=== PATIENT | female | born 1960 | race African-American/Black ===

== ENCOUNTER 2018-06-26 20:10 | Inpatient (IN) | payer OTHER ==
[~2018-06-26] VITALS: Ht 160 cm; Wt 50.3 kg
[2018-06-26 20:14] VITALS: Ht 160 cm; Wt 50.3 kg
[2018-06-26 21:25] LABS: PLATELET COUNT 193 x10^3mcL (130-400); RED CELL DISTRIBUTION WIDTH 14.1 % (11.5-14.5)
[2018-06-26 21:45] LABS: BAND NEUTROPHIL 0 % (0-10); BASOPHIL 0 % (0-2); MONOCYTE 5 % (0-7); SEGMENTED NEUTROPHILS 57 % (37-75)
[2018-06-26 21:46] LABS: rbc morphology (normal/abnorm) NORMAL (NORMAL)
[2018-06-26 21:52] LABS: CALCIUM 8.8 mg/dL (8.5-10.1); CARBON DIOXIDE 33.2 mmol/L (21-32); CHLORIDE SERUM 99 mmol/L (98-107); CREATININE SERUM 0.7 mg/dL (0.6-1.0); GFR1 > 60 mL/min; GLUCOSE SERUM 185 mg/dL (74-106); POTASSIUM SERUM 3.3 mmol/L (3.5-5.1); SODIUM SERUM 141 mmol/L (136-145)
[2018-06-26 21:57] LABS: ALBUMIN 3.9 g/dL (3.4-5.0); ALKALINE PHOSPHATASE 54 U/L (46-116); ALT/SGPT 18 U/L (14-59); AST/SGOT 22 U/L (15-37); BILIRUBIN TOTAL 0.92 mg/dL (0.20-1.00); TOTAL PROTEIN, SERUM 7.4 g/dL (6.4-8.2)
[2018-06-26 22:19] LABS: microscopic required? NO
[2018-06-26 22:24] LABS: AMPHETAMINE QUAL UR NONE DETECTED (See below)
[2018-06-26 22:25] LABS: urine erythrocyte NEGATIVE (NEGATIVE)
[2018-06-26 23:05] VITALS: BP 154/106
[2018-06-26 23:09] LABS: MAGNESIUM 2.3 mg/dL (1.8-2.4); PHOSPHOROUS 3.3 mg/dL (2.5-4.9)
[2018-06-27 00:07] LABS: FREE T4 1.21 ng/dL (0.76-1.46); FREE THYROXINE INDEX 2.7 ug/dL (1.4-4.5)
[2018-06-27 00:14] LABS: T3 TOTAL 0.84 ng/mL
[2018-06-27 02:09] VITALS: BP 148/89
[2018-06-27 10:01] VITALS: BP 115/77
[2018-06-27 17:52] VITALS: BP 117/87
[2018-06-27 20:52] VITALS: BP 145/98
[2018-06-28 05:32] VITALS: BP 131/83
[2018-06-28 07:05] LABS: CALCIUM 8.9 mg/dL (8.5-10.1); CARBON DIOXIDE 26.7 mmol/L (21-32); CHLORIDE SERUM 101 mmol/L (98-107); CREATININE SERUM 0.8 mg/dL (0.6-1.0); GFR1 > 60 mL/min; MAGNESIUM 2.1 mg/dL (1.8-2.4); PHOSPHOROUS 4.2 mg/dL (2.5-4.9); SODIUM SERUM 141 mmol/L (136-145)
[2018-06-28 07:15] LABS: GLUCOSE SERUM 54 mg/dL (74-106)
[2018-06-28 07:35] LABS: BASOPHIL % 0.8 % (0-2); PLATELET COUNT 251 x10^3mcL (130-400)
[2018-06-28 08:35] VITALS: BP 147/84
[2018-06-28 18:06] VITALS: BP 134/96
[2018-06-28 21:33] VITALS: BP 151/98
[2018-06-29 05:09] VITALS: BP 147/97
[2018-06-29 07:55] VITALS: BP 150/101
[2018-06-29 18:47] VITALS: BP 159/113
[2018-06-29 20:22] VITALS: BP 148/103
[2018-06-29 21:15] VITALS: BP 151/102
[2018-06-30 05:32] VITALS: BP 158/96
[2018-06-30 20:37] VITALS: BP 169/102; BP 169/121
[2018-06-30 22:28] VITALS: BP 131/104
[2018-07-01 05:47] VITALS: BP 133/83
[2018-07-01 06:21] LABS: BASOPHIL % 0.5 % (0-2); PLATELET COUNT 213 x10^3mcL (130-400); RED CELL DISTRIBUTION WIDTH 13.8 % (11.5-14.5)
[2018-07-01 09:06] VITALS: BP 123/86
[2018-07-01 12:55] LABS: CALCIUM 8.5 mg/dL (8.5-10.1); CARBON DIOXIDE 27.2 mmol/L (21-32); CHLORIDE SERUM 106 mmol/L (98-107); CREATININE SERUM 0.7 mg/dL (0.6-1.0); GFR1 > 60 mL/min; GLUCOSE SERUM 101 mg/dL (74-106); SODIUM SERUM 140 mmol/L (136-145)
[2018-07-01 12:56] LABS: POTASSIUM SERUM 2.8 mmol/L (3.5-5.1)
[2018-07-01 17:25] VITALS: BP 109/80
[2018-07-01 21:02] VITALS: BP 119/71
[2018-07-02 05:06] VITALS: BP 114/71
[2018-07-02 08:36] VITALS: BP 109/78
[2018-07-02 09:42] LABS: CALCIUM 8.3 mg/dL (8.5-10.1); CARBON DIOXIDE 26.1 mmol/L (21-32); CHLORIDE SERUM 102 mmol/L (98-107); CREATININE SERUM 0.7 mg/dL (0.6-1.0); GFR1 > 60 mL/min; GLUCOSE SERUM 102 mg/dL (74-106); SODIUM SERUM 137 mmol/L (136-145)
[2018-07-02 10:35] LABS: POTASSIUM SERUM 2.5 mmol/L (3.5-5.1)
[2018-07-02 12:21] LABS: MAGNESIUM 1.8 mg/dL (1.8-2.4); PHOSPHOROUS 4.4 mg/dL (2.5-4.9)
[2018-07-02 16:36] VITALS: BP 104/70
[2018-07-02 19:22] LABS: CALCIUM 8.3 mg/dL (8.5-10.1); CARBON DIOXIDE 29.4 mmol/L (21-32); CHLORIDE SERUM 105 mmol/L (98-107); CREATININE SERUM 0.7 mg/dL (0.6-1.0); GFR1 > 60 mL/min; GLUCOSE SERUM 106 mg/dL (74-106); POTASSIUM SERUM 3.6 mmol/L (3.5-5.1); SODIUM SERUM 136 mmol/L (136-145)
[2018-07-02 19:53] VITALS: BP 113/76
[2018-07-03 05:42] VITALS: BP 105/68
[2018-07-03 09:00] VITALS: BP 106/65
[2018-07-03 17:03] VITALS: BP 106/65
[2018-07-03] MEDS ORDERED: SERO100 PO (17:23)
[2018-07-03] MEDS ORDERED: HYD25 PO (17:23)
[2018-07-03] MEDS ORDERED: ZES10 PO (17:23)
== END 2018-07-03 19:38 | DRG 885 ==
LOC: ED 20:10 → MU 22:08
PROVIDERS: Emergency Medicine; Internal Medicine
DX: F20.2 Catatonic schizophrenia (principal); G93.41 Metabolic encephalopathy; F20.0 Paranoid schizophrenia; G90.8 Other disorders of autonomic nervous system; I16.0 Hypertensive urgency; T46.5X6A Underdosing of other antihypertensive drugs, initial encounter; I10 Essential (primary) hypertension; E87.6 Hypokalemia; E78.5 Hyperlipidemia, unspecified; E16.2 Hypoglycemia, unspecified; R63.0 Anorexia; R33.9 Retention of urine, unspecified; F45.8 Other somatoform disorders; Z68.21 Body mass index [BMI] 21.0-21.9, adult; Z91.14 Patient's other noncompliance with medication regimen; Y92.009 Unspecified place in unspecified non-institutional (private) residence as the place of occurrence of the external cause
CPT/HCPCS: 82962; 83880; 84439; G0480; J1610; J1630; J2060; J3480; J3490; J7030; Q0092

== ENCOUNTER 2018-07-11 07:54 | Inpatient (IN) | payer OTHER ==
[~2018-07-11] VITALS: Ht 160 cm; Wt 52.2 kg
[~2018-07-11 07:54] MED LIST: HYD25 PO; SERO100 PO; ZES10 PO
[2018-07-11 08:53] LABS: BASOPHIL % 1.4 % (0-2); PLATELET COUNT 297 x10^3mcL (130-400); RED CELL DISTRIBUTION WIDTH 13.4 % (11.5-14.5)
[2018-07-11 09:27] LABS: CALCIUM 8.8 mg/dL (8.5-10.1); CARBON DIOXIDE 20.9 mmol/L (21-32); CHLORIDE SERUM 102 mmol/L (98-107); CREATININE SERUM 0.9 mg/dL (0.6-1.0); GFR1 > 60 mL/min; GLUCOSE SERUM 168 mg/dL (74-106); SODIUM SERUM 138 mmol/L (136-145)
[2018-07-11 12:00] VITALS: BP 119/85
[2018-07-11 12:13] LABS: T3 TOTAL 0.84 ng/mL
[2018-07-11 14:35] VITALS: Ht 160 cm; Wt 52.2 kg
[2018-07-11 17:45] VITALS: BP 120/82
[2018-07-11 18:36] LABS: CHOLESTEROL/HDL RATIO 4.2; MAGNESIUM 2.3 mg/dL (1.8-2.4); PHOSPHOROUS 3.2 mg/dL (2.5-4.9)
[2018-07-11 18:46] LABS: FREE T4 1.23 ng/dL (0.76-1.46); FREE THYROXINE INDEX 2.4 ug/dL (1.4-4.5); T4(THYROXINE) 6.3 ug/dL (4.7-13.3)
[2018-07-11 20:00] VITALS: BP 130/94
[2018-07-12 05:27] VITALS: BP 129/87
[2018-07-12 06:36] LABS: microscopic required? YES; urine erythrocyte 2+ (NEGATIVE)
[2018-07-12 06:52] LABS: CALCIUM 8.2 mg/dL (8.5-10.1); CARBON DIOXIDE 24.7 mmol/L (21-32); CHLORIDE SERUM 113 mmol/L (98-107); CREATININE SERUM 0.7 mg/dL (0.6-1.0); GFR1 > 60 mL/min; GLUCOSE SERUM 68 mg/dL (74-106); POTASSIUM SERUM 4.5 mmol/L (3.5-5.1); SODIUM SERUM 145 mmol/L (136-145)
[2018-07-12 06:55] LABS: RED CELL DISTRIBUTION WIDTH 13.6 % (11.5-14.5)
[2018-07-12 07:27] LABS: BASOPHIL % 0.4 % (0-2); PLATELET COUNT 233 x10^3mcL (130-400)
[2018-07-12 08:20] VITALS: BP 123/86
[2018-07-12 09:10] LABS: AMPHETAMINE QUAL UR NONE DETECTED (See below)
[2018-07-12 17:06] VITALS: BP 127/92
[2018-07-12 22:20] VITALS: BP 141/94
[2018-07-13 05:34] VITALS: BP 140/95
[2018-07-13 06:13] LABS: BASOPHIL % 0.3 % (0-2); PLATELET COUNT 232 x10^3mcL (130-400); RED CELL DISTRIBUTION WIDTH 14.5 % (11.5-14.5)
[2018-07-13 06:24] LABS: CHLORIDE SERUM 111 mmol/L (98-107); CREATININE SERUM 0.8 mg/dL (0.6-1.0); GFR1 > 60 mL/min; GLUCOSE SERUM 96 mg/dL (74-106); POTASSIUM SERUM 3.5 mmol/L (3.5-5.1); SODIUM SERUM 146 mmol/L (136-145)
[2018-07-13 07:21] VITALS: BP 137/100
[2018-07-13 14:51] VITALS: BP 125/96
[2018-07-13 20:22] VITALS: BP 122/96
[2018-07-14 05:49] VITALS: BP 117/75
[2018-07-14 06:50] LABS: BASOPHIL % 0.3 % (0-2); PLATELET COUNT 229 x10^3mcL (130-400); RED CELL DISTRIBUTION WIDTH 14.3 % (11.5-14.5)
[2018-07-14 07:00] LABS: CALCIUM 8.4 mg/dL (8.5-10.1); CARBON DIOXIDE 34.2 mmol/L (21-32); CHLORIDE SERUM 104 mmol/L (98-107); CREATININE SERUM 0.6 mg/dL (0.6-1.0); GFR1 > 60 mL/min; GLUCOSE SERUM 82 mg/dL (74-106); POTASSIUM SERUM 3.2 mmol/L (3.5-5.1); SODIUM SERUM 143 mmol/L (136-145)
[2018-07-14 09:26] VITALS: BP 107/72
[2018-07-14 18:00] VITALS: BP 94/65
[2018-07-14 20:38] VITALS: BP 110/67
[2018-07-14 22:17] VITALS: BP 110/67
== END 2018-07-15 00:10 | DRG 885 ==
LOC: ED 07:54 → MU 09:38
PROVIDERS: Emergency Medicine; Family Medicine; Internal Medicine
DX: F20.2 Catatonic schizophrenia (principal); N17.0 Acute kidney failure with tubular necrosis; N39.0 Urinary tract infection, site not specified; E87.6 Hypokalemia; F20.0 Paranoid schizophrenia; F41.9 Anxiety disorder, unspecified; G90.8 Other disorders of autonomic nervous system; F32.9 Major depressive disorder, single episode, unspecified; I10 Essential (primary) hypertension; G24.01 Drug induced subacute dyskinesia; R80.9 Proteinuria, unspecified; E78.5 Hyperlipidemia, unspecified; Z68.20 Body mass index [BMI] 20.0-20.9, adult; Z98.51 Tubal ligation status; Z88.1 Allergy status to other antibiotic agents; Z91.14 Patient's other noncompliance with medication regimen
CPT/HCPCS: 83880; 84439; J0696; J3480; J7030; Q0092